=== PATIENT | female | born 1995 | race Two or more races ===

== ENCOUNTER 2019-08-02 02:32 | Emergency (ER) | payer MEDICAID, OTHER ==
[~2019-08-02] VITALS: Ht 152.4 cm; Wt 73.6 kg
[2019-08-02 02:34] VITALS: BP 124/50
--- NOTE | 2019-08-02 02:45 | NUR ---
KNEE PAIN SINCE NOVEMBER 2018. PAIN 04/23.
[2019-08-02] MEDS ORDERED: KETOROLAC 30 MG/1 ML IM ONE (03:00)
[2019-08-02] MEDS ORDERED: KETOROLAC 60 MG/2 ML ONE (03:05)
--- NOTE | 2019-08-02 03:59 | NUR ---
PT STATES PAIN IS BETTER SINCE MEDS AND ICE. 09/23
--- NOTE | 2019-08-02 04:33 | NUR ---
EMERALD APPLIED TO R KNEE. PT TOLERATED WELL. AMBULATED TO DC DESK WITH A SLIGHT LIMP.
== END 2019-08-02 04:35 | disposition home or self-care (01) ==
LOC: ED 04:10
DX: M25.561 Pain in right knee (principal)
CPT/HCPCS: 73564; 96372; 99283; J1885

== ENCOUNTER 2020-04-12 21:44 | Emergency (ER) | payer OTHER ==
[~2020-04-12] VITALS: Ht 152.4 cm; Wt 69.1 kg
[2020-04-12] MEDS ORDERED: ALBUTEROL/IPRATROPIUM 2.5MG/0.5MG, 3 ML ONE (22:19)
[2020-04-12] MEDS ORDERED: ALBUTEROL/IPRATROPIUM 2.5MG/0.5MG, 3 ML NPPB ONE (22:30)
--- NOTE | 2020-04-12 22:33 | NUR ---
ASSUMED CARE OF PATIENT. PATIENT REPORTS A COUGH SINCE THE FIRES STARTED AND SMOKE HAS BEEN IN THE AIR. PT WAS GIVEN A INHALER A YEAR AGO BY HER DOCTOR AND WAS TOLD SHE POSSIBLY HAD ASTHMA. PT IS OUT OF HER INAHLER. VS STABLE. NO ACUTE DISTRESS NOTED. CALL LIGHT IN PLACE. WILL CONTINUE TO MONITOR.
[2020-04-12 23:28] VITALS: BP 115/51
== END 2020-04-12 23:29 | disposition home or self-care (01) ==
LOC: ED 22:14
DX: R06.00 Dyspnea, unspecified (principal); R06.2 Wheezing; R05 Cough
CPT/HCPCS: 71045; 94640; 99283; J7512

== ENCOUNTER 2020-04-16 20:58 | Emergency (ER) | payer OTHER ==
[~2020-04-16] VITALS: Ht 152.4 cm; Wt 70.8 kg
--- NOTE | 2020-04-16 21:42 | NUR ---
Patient presents to ER c/o "I felt like I had an asthma attack at work." Patient states she was here on Monday for the same but she had to leave for an emergency. She was feeling fine after that until today at work she felt the same. She states she felt SOB suddenly which made her start crying because she was scared. Patient is in NAD. Respirations even and unlabored.
[2020-04-16 21:43] LABS: BASOPHILS # (AUTO) 0.01 x10^3/uL (0-0.1); BASOPHILS % (AUTO) 0 % (0-1); EOSINOPHILS # (AUTO) 0.18 x10^3/uL (0-0.4); EOSINOPHILS % (AUTO) 2 % (1-7); LYMPHOCYTES % (AUTO) 10 % (22-44); MD NO; MEAN CORPUSCULAR HEMOGLOBIN 27.3 pg (27.0-34.8); MEAN CORPUSCULAR VOLUME 80.3 fL (80-100); MEAN PLATELET VOLUME 7.9 fL (7.4-10.4); MONOCYTES # (AUTO) 0.09 x10^3/uL (0.2-0.8); MONOCYTES % (AUTO) 1 % (2-9); NEUTROPHILS # (AUTO) 11.05 x10^3/uL (1.8-6.8); NEUTROPHILS % (AUTO) 88 % (42-75); PLATELET COUNT 420 x10^3/uL (130-400); RED BLOOD COUNT 4.84 x10^6/uL (3.82-5.3); RED CELL DISTRIBUTION WIDTH 13.7 % (9.6-15.2)
[2020-04-16 21:52] LABS: ALBUMIN 3.6 g/dL (3.4-5.0); ANION GAP 8 mmol/L (5-15); CALCIUM 9.5 mg/dL (8.5-10.1); CHLORIDE 106 mmol/L (98-107); CREATININE 0.93 mg/dL (0.55-1.02)
[2020-04-16 21:56] LABS: TROPONIN I < 0.015 ng/mL (0.000-0.045)
[2020-04-16 23:04] VITALS: BP 103/56
== END 2020-04-16 23:12 | disposition home or self-care (01) ==
LOC: ED 23:06
DX: R06.00 Dyspnea, unspecified (principal); R06.02 Shortness of breath; R07.89 Other chest pain; F17.210 Nicotine dependence, cigarettes, uncomplicated
CPT/HCPCS: 36415; 71045; 80048; 82040; 84484; 84703; 85025; 93005; 99285

== ENCOUNTER 2020-06-06 14:57 | Emergency (ER) | payer OTHER ==
[~2020-06-06] VITALS: Ht 154.9 cm; Wt 70.0 kg
[2020-06-06 15:02] VITALS: BP 117/41
--- NOTE | 2020-06-06 15:34 | NUR ---
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
--- NOTE | 2020-06-06 15:45 | NUR ---
xr wnl up for recheck. as
[2020-06-06] MEDS ORDERED: IBUPROFEN 600 MG TABLET ONE (16:06)
[2020-06-06] MEDS ORDERED: IBUPROFEN 600 MG TABLET PO ONE (16:30)
== END 2020-06-06 16:29 | disposition home or self-care (01) ==
LOC: ED 15:46
DX: S63.502A Unspecified sprain of left wrist, initial encounter (principal); W01.0XXA Fall on same level from slipping, tripping and stumbling without subsequent striking against object, initial encounter; Y93.89 Activity, other specified; Y92.89 Other specified places as the place of occurrence of the external cause; Y99.8 Other external cause status
CPT/HCPCS: 29125; 99283

== ENCOUNTER 2020-07-10 02:55 | Emergency (ER) | payer OTHER ==
[~2020-07-10] VITALS: Ht 152.4 cm; Wt 70.0 kg
--- NOTE | 2020-07-10 03:21 | NUR ---
Note brielle in EDM - 07/10/20 at 0323 by TOSIN PT GUILLERMINA [facility] FOR "COLD HANDS AND FEET, THEY ARE NONE" PT ALSO REPORTS NEEDING HIS ALBUTEROL REFILLED. PT AMBULATES WITH A SMOOTH AND STEADY GAIT, NAD, FCS no SOB NOTED, PT HAS RUSHED SPEECH. PT SITTING UP ON [employer], PLACED ON SPO2 BP MONITORING. [place]. ALOK SCRUGGS AT FOR EVAL AND POC
--- NOTE | 2020-07-10 03:23 | NUR ---
PREV NOTE ON INCORRECT PT.
[2020-07-10] MEDS ORDERED: SODIUM CHLORIDE FLUSH 10ML SYR IVF ONE (03:30)
[2020-07-10 03:37] LABS: BASOPHILS % (AUTO) 1 % (0-1); EOSINOPHILS % (AUTO) 2 % (1-7); LYMPHOCYTES % (AUTO) 27 % (22-44); MEAN CORPUSCULAR HEMOGLOBIN 27.9 pg (27.0-34.8); MEAN PLATELET VOLUME 7.5 fL (7.4-10.4); MONOCYTES % (AUTO) 8 % (2-9); NEUTROPHILS % (AUTO) 62 % (42-75); PLATELET COUNT 443 x10^3/uL (130-400); RED CELL DISTRIBUTION WIDTH 13.7 % (9.6-15.2)
[2020-07-10 03:40] LABS: MICROSCOPIC INDICATED
[2020-07-10 03:43] LABS: ALANINE AMINOTRANSFERASE 29 U/L (12-78); ALBUMIN 3.9 g/dL (3.4-5.0); ANION GAP 5 mmol/L (5-15); CALCIUM 8.6 mg/dL (8.5-10.1); CHLORIDE 110 mmol/L (98-107); CREATININE 0.83 mg/dL (0.55-1.02)
[2020-07-10 03:48] LABS: ALKALINE PHOSPHATASE 107 U/L (45-117); BILIRUBIN,TOTAL 0.2 mg/dL (0.2-1.0)
[2020-07-10 03:49] LABS: MD NO
[2020-07-10 04:26] VITALS: BP 106/52
--- NOTE | 2020-07-10 04:27 | NUR ---
Patient given discharge instructions and they have confirmed that they understand the instructions. Patient ambulatory with steady gait. nad, provided work note, denies additional questions or needs at this time. no personal belongings left in room after discharge
== END 2020-07-10 04:36 | disposition home or self-care (01) ==
LOC: ED 03:56
DX: N83.01 Follicular cyst of right ovary (principal); R10.31 Right lower quadrant pain; R11.0 Nausea; R30.0 Dysuria
CPT/HCPCS: 36415; 76830; 80053; 81001; 83690; 84703; 85025; 87086; 99284

== ENCOUNTER 2020-07-10 21:11 | Emergency (ER) | payer OTHER ==
[~2020-07-10] VITALS: Ht 152.4 cm; Wt 69.9 kg
[2020-07-10] MEDS ORDERED: KETOROLAC 30 MG/1 ML ONE (21:58)
[2020-07-10] MEDS ORDERED: ONDANSETRON 2MG/ML, 2ML ONE (21:59)
[2020-07-10] MEDS ORDERED: MORPHINE SULFATE 4 MG/ML, 1ML ONE (21:59)
[2020-07-10] MEDS ORDERED: MORPHINE SULFATE 4 MG/ML, 1ML IVPush PRN (22:00)
[2020-07-10] MEDS ORDERED: ONDANSETRON 2MG/ML, 2ML IVPush ONE (22:00)
[2020-07-10] MEDS ORDERED: KETOROLAC 30 MG/1 ML IVPush ONE (22:00)
[2020-07-10] MEDS ORDERED: SODIUM CHLORIDE FLUSH 10ML SYR IVF ONE (22:00)
--- NOTE | 2020-07-10 22:26 | NUR ---
Patient presents to ER c/o abd pain. Patient states she was dx with ovarian cysts and had pain with it but it is worsening. Patient was seen the last two days for the same. Denies N/V. Patient is in NAD. Respirations even and unlabored.
[2020-07-10] MEDS ORDERED: OMNIPAQUE 350 MG/ML, 100ML BOTTLE ONE (23:24)
[2020-07-11 00:29] VITALS: BP 92/49
--- NOTE | 2020-07-11 00:46 | NUR ---
Discharge instructions given. All questions and concerns addressed. Patient ambulatory with a steady gait. Belongings with patient.
== END 2020-07-11 00:48 | disposition home or self-care (01) ==
LOC: ED 22:36
DX: N83.291 Other ovarian cyst, right side (principal); R10.31 Right lower quadrant pain; R10.2 Pelvic and perineal pain; F17.200 Nicotine dependence, unspecified, uncomplicated
CPT/HCPCS: 74177; 76830; 96374; 96375; 99285; J1885; J2270; J2405; Q9967

== ENCOUNTER 2020-07-24 19:24 | Emergency (ER) | payer OTHER ==
[~2020-07-24] VITALS: Ht 152.4 cm; Wt 69.4 kg
[2020-07-24] MEDS ORDERED: SODIUM CHLORIDE FLUSH 10ML SYR IVF ONE (20:00)
[2020-07-24 21:18] LABS: ALBUMIN 3.8 g/dL (3.4-5.0); CALCIUM 9.1 mg/dL (8.5-10.1); CHLORIDE 110 mmol/L (98-107)
[2020-07-24 21:21] LABS: BASOPHILS % (AUTO) 1 % (0-1); EOSINOPHILS % (AUTO) 4 % (1-7); LYMPHOCYTES % (AUTO) 32 % (22-44); MEAN CORPUSCULAR HEMOGLOBIN 27.8 pg (27.0-34.8); MEAN CORPUSCULAR HGB CONC 35.1 g/dL (32.4-35.8); MEAN PLATELET VOLUME 7.9 fL (7.4-10.4); MONOCYTES % (AUTO) 9 % (2-9); NEUTROPHILS % (AUTO) 56 % (42-75); PLATELET COUNT 445 x10^3/uL (130-400); RED BLOOD COUNT 4.69 x10^6/uL (3.82-5.3); RED CELL DISTRIBUTION WIDTH 14.2 % (9.6-15.2)
[2020-07-24 21:25] LABS: MD NO
[2020-07-24 21:26] LABS: ALANINE AMINOTRANSFERASE 25 U/L (12-78); ALKALINE PHOSPHATASE 102 U/L (45-117); ANION GAP 4 mmol/L (5-15); BILIRUBIN,TOTAL 0.3 mg/dL (0.2-1.0); CREATININE 0.82 mg/dL (0.55-1.02); TOTAL PROTEIN 7.8 g/dL (6.4-8.2)
[2020-07-24 23:28] LABS: MICROSCOPIC INDICATED
[2020-07-25 00:21] VITALS: BP 101/81
== END 2020-07-25 00:22 | disposition home or self-care (01) ==
LOC: ED 19:54
DX: G89.29 Other chronic pain (principal); R10.2 Pelvic and perineal pain; R10.31 Right lower quadrant pain
CPT/HCPCS: 36415; 74176; 76700; 80053; 81001; 83690; 84703; 85025; 87086; 93005; 99285